=== PATIENT | female | born 1980 | race Hispanic/Latino ===

== ENCOUNTER 2020-09-03 21:23 | Emergency (ER) | payer OTHER ==
[~2020-09-03] VITALS: Ht 157.5 cm; Wt 59.9 kg
[2020-09-03] MEDS ORDERED: KETOROLAC TROMETHAMINE 30 MG/ML VIAL IV STA (21:38)
[2020-09-03] MEDS ORDERED: FAMOTIDINE 20 MG/2 ML VIAL IV STA (21:45)
[2020-09-03] MEDS ORDERED: MORPHINE SULFATE INJ 4 MG/ML INJ 1ML IV STA (21:45)
[2020-09-03] MEDS ORDERED: DONNATAL/LIDOCAINE/MAALOX 30 ML SUSP PO SCH (22:00)
[2020-09-03] MEDS ORDERED: BELLADONNA ALK/PHENOBARBITAL 5 ML UDC ONE (22:04)
[2020-09-03] MEDS ORDERED: MORPHINE SULFATE INJ 4 MG/ML INJ 1ML ONE (22:04)
[2020-09-03] MEDS ORDERED: LIDOCAINE VISC 2% SOLN 15 ML UDC ONE (22:04)
[2020-09-03] MEDS ORDERED: MAGNESIUM/ALUMINUM/SIMETHICONE 30 ML UDC ONE (22:04)
[2020-09-03] MEDS ORDERED: FAMOTIDINE 20 MG/2 ML VIAL IV ONE (22:05)
[2020-09-03] MEDS ORDERED: BACTRIM DS TAB1 EACH PO (23:14)
[2020-09-03] MEDS ORDERED: PEPCID20 MG PO ×2 (23:14→23:59)
[2020-09-03 23:20] VITALS: BP 113/67
[2020-09-03] MEDS ORDERED: ONDANSETRON ODT4 MG PO (23:59)
[2020-09-04 00:04] LABS: CREATINE KINASE 53 IU/L (29-168)
== END 2020-09-03 23:20 | disposition home or self-care (01) ==
LOC: FSED 21:30
DX: R10.13 Epigastric pain (principal); R07.89 Other chest pain; R50.9 Fever, unspecified
CPT/HCPCS: 36415; 71046; 80053; 81003; 81025; 82550; 82553; 84484; 85025; 93005; 99284; J2270

== ENCOUNTER 2021-09-04 23:32 | Emergency (ER) | payer OTHER ==
[~2021-09-04] VITALS: Ht 157.5 cm; Wt 59.9 kg
[~2021-09-04 23:32] MED LIST: BACTRIM DS TAB1 EACH PO; ONDANSETRON ODT4 MG PO; PEPCID20 MG PO
[2021-09-05] MEDS ORDERED: SODIUM CHLORIDE 0.9% 1000ML 1,000 ML IV STA
[2021-09-05] MEDS ORDERED: ONDANSETRON HCL INJ 2MG/ML 2ML 2 MG/ML VIAL IV ONE
[2021-09-05] MEDS ORDERED: IOPAMIDOL 370 MG/ML 100 ML INFUS..BTL INJ ONE (00:26)
[2021-09-05] MEDS ORDERED: ONDANSETRON HCL INJ 2MG/ML 2ML 2 MG/ML VIAL ONE (00:46)
[2021-09-05] MEDS ORDERED: SODIUM CHLORIDE 0.9% 1000ML 1,000 ML ONE (00:46)
[2021-09-05] MEDS ORDERED: FAMOTIDINE 20 MG/2 ML VIAL IV ONE ×2 (00:46)
[2021-09-05] MEDS ORDERED: CEFTRIAXONE 1 GM VIAL IV ONE (01:30)
[2021-09-05] MEDS ORDERED: CEFTRIAXONE 1 GM VIAL ONE (01:34)
[2021-09-05] MEDS ORDERED: ACETAMINOPHEN500 MG PO (02:12)
[2021-09-05] MEDS ORDERED: CEFDINIR300 MG PO (02:12)
[2021-09-05 02:20] VITALS: BP 114/72
== END 2021-09-05 02:20 | disposition home or self-care (01) ==
LOC: FSED 23:57
DX: N39.0 Urinary tract infection, site not specified (principal); K59.00 Constipation, unspecified
CPT/HCPCS: 74177; 80053; 81003; 81025; 85025; 96374; 96376; 99284; J0696; J2405; J7030; Q9967